=== PATIENT | male | born 1990 | race Hispanic/Latino ===

== ENCOUNTER 2017-03-26 06:08 | Emergency (ER) | payer SELFPAY ==
[~2017-03-26] VITALS: Ht 157.5 cm; Wt 83.9 kg
[2017-03-26] MEDS ORDERED: ONDANSETRON HCL INJ 2 MG/ML VIAL IV STA (06:36)
[2017-03-26] MEDS ORDERED: SODIUM CHLORIDE 0.9% 1000ML 1,000 ML IV STA (06:36)
[2017-03-26] MEDS ORDERED: LORAZEPAM INJ 2 MG/ML VIAL IV ONE (07:15)
[2017-03-26] MEDS ORDERED: KETOROLAC TROMETHAMINE 30 MG/ML VIAL IV STA (07:15)
[2017-03-26] MEDS ORDERED: PROMETHAZINE 12.5MG/ NACL 0.9% 12.5 MG/50 ML BAG IV ONE (07:30)
[2017-03-26 07:42] LABS: BASOPHILS % 0.2 % (0.0-1.0); EOSINOPHILS % 0.3 % (0.0-6.0); HEMOGLOBIN 15.3 g/dL (14.0-18.0); LYMPHOCYTES # (AUTO) 1.5 (1.0-3.2); LYMPHOCYTES % 14.1 % (18.0-39.1); MEAN CORPUSCULAR HEMOGLOBIN 31.9 pg (28-32); MEAN CORPUSCULAR HGB CONC 35.6 g/dL (31-35); MEAN CORPUSCULAR VOLUME 89.8 fL (81-99); MONOCYTES # (AUTO) 0.3 (0.2-0.8); MONOCYTES % 3.1 % (4.4-11.3); NEUTROPHILS # (AUTO) 8.4 (2.1-6.9); NEUTROPHILS % 81.8 % (38.7-80.0); PLATELET COUNT 261 x10e3/uL (140-360); RED BLOOD COUNT 4.79 x10e6/uL (4.3-5.7); RED CELL DISTRIBUTION WIDTH 11.8 % (11.7-14.4)
[2017-03-26 07:44] LABS: BILIRUBIN,URINE NEGATIVE (NEGATIVE); KETONES,URINE NEGATIVE (NEGATIVE); LEUKOCYTE ESTERASE ,URINE NEGATIVE (NEGATIVE); NITRITE,URINE NEGATIVE (NEGATIVE); PROTEIN,URINE DIPSTICK NEGATIVE (NEGATIVE); URINE UROBILINOGEN 0.2 mg/dL (0.2 - 1)
[2017-03-26 07:47] LABS: CLARITY,URINE CLEAR (CLEAR); COLOR,URINE YELLOW (YELLOW)
[2017-03-26 07:56] LABS: ALANINE AMINOTRANSFERASE 26 IU/L (0-55); ALBUMIN 4.3 g/dL (3.5-5.0); ALBUMIN/GLOBULIN RATIO 1.3 (0.8-2.0); ALKALINE PHOSPHATASE 60 IU/L (40-150); ANION GAP 13.5 mmol/L (8-16); BLOOD UREA NITROGEN 14 mg/dL (7-26); BUN/CREATININE RATIO 13 (6-25); CALCIUM 8.9 mg/dL (8.4-10.2); CARBON DIOXIDE 26 mmol/L (22-29); CHLORIDE 104 mmol/L (98-107); CREATININE, SERUM 1.04 mg/dL (0.72-1.25); EST GLOMERULAR FILTRATION RATE > 60 ML/MIN (60-); GLUCOSE 131 mg/dL (74-118); POTASSIUM 3.5 mmol/L (3.5-5.1); SODIUM 140 mmol/L (136-145)
[2017-03-26 07:57] LABS: AMYLASE 49 U/L (25-125); LIPASE 20 U/L (8-78)
[2017-03-26 08:14] LABS: WBC,URINE (MAN) 0-5 /HPF (0-5)
[2017-03-26] MEDS ORDERED: KLONOPIN0.5 MG SL (08:27)
[2017-03-26] MEDS ORDERED: PROMETHAZINE HC25 M1 PO (08:27)
[2017-03-26] MEDS ORDERED: ZOFRAN4 MG SL (08:27)
[2017-03-26] MEDS ORDERED: TAMIFLU75 MG PO (08:27)
[2017-03-26 08:42] VITALS: BP 129/74
== END 2017-03-26 09:20 | disposition home or self-care (01) ==
LOC: ER 06:08
DX: R11.2 Nausea with vomiting, unspecified (principal); J11.2 Influenza due to unidentified influenza virus with gastrointestinal manifestations; F41.1 Generalized anxiety disorder
CPT/HCPCS: 36415; 80053; 81001; 82150; 83690; 85025; 87400; 99283; J1885; J2060; J2405; J7030